=== PATIENT | male | born 1945 | race Caucasian/White ===

== ENCOUNTER → 2020-10-15 | Day surgery (SDC) | payer OTHER ==
[~2020-10-15] MED LIST: Ketamine 200 MG/20 ML MDV ONE; Lactated Ringers 1,000 ML IV SCH; Propofol 200 MG/20 ML SDV ONE; ePHEDrine 50 MG/ML SDV ONE; fentaNYL 100 MCG/2 ML SDV ONE
[2020-10-15 09:19] VITALS: BP 114/55; PULSE 67
--- NOTE | 2020-10-15 10:11 | OR ---
DATE OF OPERATION: 10/15/2020 PREOPERATIVE DIAGNOSIS: HISTORY OF POLYPS. POSTOPERATIVE DIAGNOSIS: HISTORY OF POLYPS. SURGEON: Nickolas Cortez MD PROCEDURE: FULL-LENGTH COLONOSCOPY WITH SNARE POLYPECTOMY X4. ANESTHESIA: MAC. COMPLICATIONS: None. SPECIMEN: Tubular adenomas x4, all 4 mm or less. FINDINGS: 1. Full-length diagnostic colonoscopy. 2. Moderate jaquez diverticulosis. 3. Tubular adenomas x4. RECOMMENDATIONS: Followup colonoscopy in 5 years. INDICATIONS: The patient is a 75-year-old male with 3 prior colonoscopies. He has had polyps removed on all. He is due for a routine surveillance scope. DESCRIPTION OF PROCEDURE: The patient was prepped and draped, placed in the left lateral decubitus position. A lubricated Olympus colonoscope was inserted and easily advanced to the cecum. Direct visualization of the ileocecal valve and appendiceal orifice was accomplished. The bowel prep was adequate. Upon withdrawal of the scope in the immediate ascending colon, the patient had 2 small tubular adenomas, one approximately 2 mm, one 3 [id number], both removed with a snare and suctioned into polyp trap 1 without complication. The rest of the ascending colon was benign. On the transverse colon side of the hepatic flexure, the patient had a third tubular adenoma approximately 3 mm, also removed with a snare and suctioned into polyp trap #2. The patient does have diverticular disease throughout the length of the colon, moderate in severity at least in the sigmoid area. There were no signs of any inflammatory changes, colitis, vascular abnormalities, or bleeding sites. A fourth small 3 mm tubular adenoma was found in the mid-to- distal sigmoid colon, also removed with a snare and suctioned into polyp trap #3. The rectal vault appeared benign. There was prominent hemorrhoid tissue in the perianal region seen on retroflexion of the scope and no other lesions seen. Air was then suctioned and the scope removed without complication. HERNANDO/RAFAEL /[id number]
== END ==
LOC: CC.SDS 07:29
PROVIDERS: ATTEND Family Medicine
DX: Z12.11 Encounter for screening for malignant neoplasm of colon (principal); D12.2 Benign neoplasm of ascending colon; D12.3 Benign neoplasm of transverse colon; D12.5 Benign neoplasm of sigmoid colon; K57.30 Diverticulosis of large intestine without perforation or abscess without bleeding; K64.9 Unspecified hemorrhoids; K21.9 Gastro-esophageal reflux disease without esophagitis; E11.9 Type 2 diabetes mellitus without complications; I10 Essential (primary) hypertension; E66.9 Obesity, unspecified; E78.00 Pure hypercholesterolemia, unspecified; N40.0 Benign prostatic hyperplasia without lower urinary tract symptoms; M19.049 Primary osteoarthritis, unspecified hand; Z79.899 Other long term (current) drug therapy; Z79.84 Long term (current) use of oral hypoglycemic drugs; Z68.38 Body mass index [BMI] 38.0-38.9, adult
CPT/HCPCS: 45385; J2704; J3010; J7120; 00812; 88305

== ENCOUNTER 2022-03-18 12:39 | Emergency (ER) | payer OTHER, MEDICARE ==
[2022-03-18 12:42] VITALS: BP 143/74; PULSE 94
[2022-03-18] MEDS: Sodium Chloride 0.9% 500 ML IV SCH (13:43)
== END 2022-03-18 14:48 | disposition home or self-care (01) ==
LOC: CC.ED 12:39
DX: M79.10 Myalgia, unspecified site (principal); R94.4 Abnormal results of kidney function studies; Z20.822 Contact with and (suspected) exposure to COVID-19; Z79.82 Long term (current) use of aspirin; Z79.899 Other long term (current) drug therapy
CPT/HCPCS: 36415; 71046; 80053; 81001; 85025; 86140; 87449; 99283; 99284; J7040; U0002